=== PATIENT | female | born 1950 | race Two or more races ===

== ENCOUNTER 2018-07-09 21:27 | Inpatient (IN) | payer MEDICARE, OTHER ==
[~2018-07-09] VITALS: Ht 147.3 cm; Wt 101.2 kg
[2018-07-09 22:00] LABS: Basophils # (auto) 0.1 uL; Basophils % (auto) 1.2 % (0.0-2.0); Eosinophils # (auto) 0.3 uL; Eosinophils % (auto) 3.7 % (0.0-7.0); Hematocrit 42.5 % (36.0-46.0); Hemoglobin 14.5 g/dL (12.2-16.2); Lymphocytes # (auto) 2.1 uL; Lymphocytes % (auto) 26.1 % (10.0-50.0); Mean Corpuscular Hemoglobin 33.3 pg (28.0-32.0); Mean Corpuscular Hgb Conc. 34.2 g/dL (32.0-36.0); Mean Corpuscular Volume 97.5 fL (80.0-100.0); Monocytes # (auto) 0.7 uL; Monocytes % (auto) 8.1 % (0.0-12.0); Neutrophils % (auto) 60.9 % (37.0-80.0); Platelet Count (auto) 234 10^3/uL (140-450); Red Blood Cells 4.36 10^6/uL (4.0-5.20); Red Cell Distribution Width 13.2 % (11.8-14.3); White Blood Cell 8.2 10^3/uL (4.4-10.8)
[2018-07-09 22:17] LABS: INR 0.9 (0.9-1.15); Partial Thromboplastin Time 29.1 sec (23.78-33.04); Prothrombin Time 9.7 sec (9.27-12.13)
[2018-07-09 22:22] LABS: Alanine Aminotransferase 22 U/L (13-56); Anion Gap 7 (5-15); Aspartate Aminotransferase 18 U/L (15-37); Blood Urea Nitrogen 15 mg/dL (7-18); Calcium 8.5 mg/dL (8.5-10.1); Carbon Dioxide 28 mmol/L (21-32); Chloride 106 mmol/L (98-107); GFR African American 99 mL/min; GFR Non-African American 82 mL/min; Glucose 88 mg/dL (74-106); Magnesium 2.2 mg/dL (1.6-2.6); Potassium 4.2 mmol/L (3.5-5.1); Sodium 141 mmol/L (136-145)
[2018-07-09 22:27] LABS: Alkaline Phosphatase 98 U/L (45-117); Bilirubin, Total 0.4 mg/dL (0.2-1.0); Total Protein 8.2 g/dL (6.4-8.2)
[2018-07-10] MEDS ORDERED: NITROGLYCERIN 0.4 MG SL TAB SL ONE (03:00)
[2018-07-10] MEDS ORDERED: ASPirin-EC 325mg tab PO ONE (03:00)
[2018-07-10] MEDS ORDERED: MORPHINE SULFATE 4 MG/ML SYR/VIAL IV ONE (03:00)
[2018-07-10] MEDS ORDERED: IOHEXOL 350 MG/ML 100ML IJ ONE (04:05)
[2018-07-10] MEDS ORDERED: NITROGLYCERIN 0.4 MG SL TAB SL PRN (05:15)
[2018-07-10] MEDS ORDERED: MORPHINE SULF INJ 2 MG/ML SYRINGE 1ML IV PRN ×2 (05:15→13:15)
[2018-07-10] MEDS ORDERED: FUROSEMIDE 20 MG/2 ML VIAL IV ONE (06:00)
[2018-07-10 06:35] LABS: Basophils # (auto) 0 uL; Basophils % (auto) 0.7 % (0.0-2.0); Eosinophils # (auto) 0.3 uL; Eosinophils % (auto) 4.2 % (0.0-7.0); Hematocrit 39.4 % (36.0-46.0); Hemoglobin 13.6 g/dL (12.2-16.2); Lymphocytes # (auto) 1.6 uL; Lymphocytes % (auto) 23.3 % (10.0-50.0); Mean Corpuscular Hemoglobin 33.3 pg (28.0-32.0); Mean Corpuscular Hgb Conc. 34.6 g/dL (32.0-36.0); Mean Corpuscular Volume 96.4 fL (80.0-100.0); Monocytes # (auto) 0.7 uL; Monocytes % (auto) 9.8 % (0.0-12.0); Neutrophils # (auto) 4.2 uL; Nucleated Red Blood Cells % 0.1 %; Platelet Count (auto) 202 10^3/uL (140-450); Red Blood Cells 4.08 10^6/uL (4.0-5.20); Red Cell Distribution Width 13.3 % (11.8-14.3); White Blood Cell 6.8 10^3/uL (4.4-10.8)
[2018-07-10 06:49] LABS: BUN/Creatinine Ratio 16.7; Calcium 8.2 mg/dL (8.5-10.1); Potassium 3.8 mmol/L (3.5-5.1)
[2018-07-10 08:36] VITALS: BP 126/86
[2018-07-10 09:21] LABS: Cholesterol 141 mg/dL (< 200); HDL Cholesterol 51 mg/dL (40-59); LDL Cholesterol 88 mg/dL (< 100); Triglycerides 123 mg/dL (< 150)
[2018-07-10] MEDS ORDERED: LISINOPRIL 20 MG TAB PO SCH (10:00)
[2018-07-10 13:00] VITALS: BP 140/78
[2018-07-10 17:00] VITALS: BP 134/96
[2018-07-10 18:17] VITALS: BP 150/77
[2018-07-11] MEDS ORDERED: FUROSEMIDE 40 MG/4 ML VIAL IV SCH (10:00)
[2018-07-11] MEDS ORDERED: POTASSIUM CHL 20 Meq TABLET PO SCH (10:00)
[2018-07-11] MEDS ORDERED: ASPirin 81 mg TAB PO SCH (10:00)
== END 2018-07-10 19:00 | disposition home or self-care (01) | DRG 291 ==
LOC: ER 21:27 → TELE 21:28 → TELE-WESTW 07-10 08:47
PROVIDERS: ADMIT Nurse Practitioner Family; ATTEND Family Medicine
DX: I13.0 Hypertensive heart and chronic kidney disease with heart failure and stage 1 through stage 4 chronic kidney disease, or unspecified chronic kidney disease (principal); I50.31 Acute diastolic (congestive) heart failure; Z68.42 Body mass index [BMI] 45.0-49.9, adult; N18.2 Chronic kidney disease, stage 2 (mild); E66.01 Morbid (severe) obesity due to excess calories; G47.33 Obstructive sleep apnea (adult) (pediatric); I50.82 Biventricular heart failure; I70.0 Atherosclerosis of aorta; J45.909 Unspecified asthma, uncomplicated; K21.9 Gastro-esophageal reflux disease without esophagitis; K57.90 Diverticulosis of intestine, part unspecified, without perforation or abscess without bleeding; Z86.73 Personal history of transient ischemic attack (TIA), and cerebral infarction without residual deficits; Z88.5 Allergy status to narcotic agent; Z88.2 Allergy status to sulfonamides
CPT/HCPCS: 36415; 70450; 71045; 71260; 74177; 80048; 80053; 80061; 83735; 83880; 84443; 84484; 85025; 85610; 85730; 93005; 93306; 93886; 94761; 96374

== ENCOUNTER 2018-07-16 16:05 | Inpatient (IN) | payer OTHER ==
[~2018-07-16] VITALS: Ht 147.3 cm; Wt 100.7 kg
[2018-07-16 17:04] LABS: Basophils # (auto) 0.1 uL; Basophils % (auto) 0.9 % (0.0-2.0); Eosinophils # (auto) 0.1 uL; Eosinophils % (auto) 1.3 % (0.0-7.0); Hematocrit 43.3 % (36.0-46.0); Hemoglobin 14.8 g/dL (12.2-16.2); Lymphocytes # (auto) 1.8 uL; Lymphocytes % (auto) 23.9 % (10.0-50.0); Mean Corpuscular Hemoglobin 33.6 pg (28.0-32.0); Mean Corpuscular Hgb Conc. 34.3 g/dL (32.0-36.0); Mean Corpuscular Volume 97.9 fL (80.0-100.0); Monocytes # (auto) 0.7 uL; Monocytes % (auto) 9.6 % (0.0-12.0); Neutrophils # (auto) 4.8 uL; Neutrophils % (auto) 64.3 % (37.0-80.0); Nucleated Red Blood Cells % 0.2 %; Platelet Count (auto) 237 10^3/uL (140-450); Red Blood Cells 4.42 10^6/uL (4.0-5.20); Red Cell Distribution Width 13.1 % (11.8-14.3); White Blood Cell 7.5 10^3/uL (4.4-10.8)
[2018-07-16 17:21] LABS: Alanine Aminotransferase 37 U/L (13-56); Albumin 3.2 g/dL (3.4-5.0); Alkaline Phosphatase 101 U/L (45-117); Anion Gap 9 (5-15); Aspartate Aminotransferase 27 U/L (15-37); BUN/Creatinine Ratio 16.3; Bilirubin, Total 0.5 mg/dL (0.2-1.0); Blood Urea Nitrogen 17 mg/dL (7-18); Calcium 8.4 mg/dL (8.5-10.1); Carbon Dioxide 26 mmol/L (21-32); Chloride 105 mmol/L (98-107); GFR African American 68 mL/min; GFR Non-African American 56 mL/min; Glucose 90 mg/dL (74-106); Sodium 140 mmol/L (136-145); Total Protein 8.3 g/dL (6.4-8.2)
[2018-07-16 18:30] LABS: Urine Bacteria FEW /hpf (None Seen); Urine Blood Negative /uL (Negative); Urine Mucus FEW (None Seen); Urine Specific Gravity 1.023 (1.001-1.035); Urine WBC 3 /hpf (0 - 5)
[2018-07-16] MEDS ORDERED: ASPirin-EC 81 mg tab PO ONE (21:00)
[2018-07-16] MEDS ORDERED: KETOROLAC TROMETH 60MG/2ML VIAL IM ONE (21:00)
[2018-07-16 21:47] LABS: INR 0.92 (0.9-1.15); Partial Thromboplastin Time 29.5 sec (23.78-33.04); Prothrombin Time 9.9 sec (9.27-12.13)
[2018-07-16] MEDS ORDERED: IOHEXOL 350 MG/ML 100ML IJ ONE (22:05)
[2018-07-16] MEDS ORDERED: ASPirin 81 mg TAB PO ONE (22:45)
[2018-07-16] MEDS ORDERED: KETOROLAC TROMETH 30 MG/ML 1ML VIAL IV ONE (22:45)
[2018-07-17] MEDS ORDERED: ACETAMINOPHEN 500 MG TAB PO PRN (01:15)
[2018-07-17] MEDS ORDERED: MORPHINE SULF INJ 2 MG/ML SYRINGE 1ML IV PRN (01:15)
[2018-07-17] MEDS: HYDROcodone-ACET 5/325MG TAB PO PRN ×2 (05:24→09:36)
[2018-07-17] MEDS ORDERED: LISINOPRIL 20 MG TAB PO SCH (10:00)
[2018-07-17 13:43] VITALS: BP 134/75
== END 2018-07-17 14:34 | disposition home or self-care (01) | DRG 206 ==
LOC: ER 16:05 → TELE 16:06
PROVIDERS: ADMIT Nurse Practitioner Family; ATTEND Internal Medicine
PROC: 5A09357 Assistance with Respiratory Ventilation, Less than 24 Consecutive Hours, Continuous Positive Airway Pressure (ICD-10-PCS; principal; 2018-07-17)
DX: M94.0 Chondrocostal junction syndrome [Tietze] (principal); E44.1 Mild protein-calorie malnutrition; G45.9 Transient cerebral ischemic attack, unspecified; Z68.42 Body mass index [BMI] 45.0-49.9, adult; I11.0 Hypertensive heart disease with heart failure; J45.909 Unspecified asthma, uncomplicated; F41.9 Anxiety disorder, unspecified; I50.9 Heart failure, unspecified; I70.0 Atherosclerosis of aorta; K57.30 Diverticulosis of large intestine without perforation or abscess without bleeding; M81.0 Age-related osteoporosis without current pathological fracture; Z85.42 Personal history of malignant neoplasm of other parts of uterus; Z86.73 Personal history of transient ischemic attack (TIA), and cerebral infarction without residual deficits; Z90.710 Acquired absence of both cervix and uterus; Z88.2 Allergy status to sulfonamides; Z88.5 Allergy status to narcotic agent; Z90.49 Acquired absence of other specified parts of digestive tract
CPT/HCPCS: 36415; 71045; 71275; 80053; 81001; 83880; 84443; 84484; 85025; 85379; 85610; 85730; 93005; 94660; 94761; 96374; J1885

== ENCOUNTER 2018-08-11 00:10 | Emergency (ER) | payer OTHER ==
[~2018-08-11] VITALS: Ht 147.3 cm; Wt 93.4 kg
[2018-08-11 04:18] LABS: Basophils # (auto) 0.1 uL; Basophils % (auto) 0.7 % (0.0-2.0); Eosinophils # (auto) 0.1 uL; Eosinophils % (auto) 1.2 % (0.0-7.0); Hematocrit 36.6 % (36.0-46.0); Hemoglobin 12.4 g/dL (12.2-16.2); Lymphocytes # (auto) 1.2 uL; Lymphocytes % (auto) 14.5 % (10.0-50.0); Mean Corpuscular Hemoglobin 33.1 pg (28.0-32.0); Mean Corpuscular Hgb Conc. 33.8 g/dL (32.0-36.0); Mean Corpuscular Volume 97.9 fL (80.0-100.0); Monocytes # (auto) 0.7 uL; Monocytes % (auto) 8.3 % (0.0-12.0); Neutrophils # (auto) 6.2 uL; Neutrophils % (auto) 75.3 % (37.0-80.0); Nucleated Red Blood Cells % 0.1 %; Platelet Count (auto) 173 10^3/uL (140-450); Red Blood Cells 3.74 10^6/uL (4.0-5.20); Red Cell Distribution Width 13.2 % (11.8-14.3); White Blood Cell 8.2 10^3/uL (4.4-10.8)
[2018-08-11 04:35] LABS: Amylase 56 U/L (25-115); Lipase 246 U/L (73-393)
[2018-08-11 04:37] LABS: Alanine Aminotransferase 24 U/L (13-56); Albumin 2.7 g/dL (3.4-5.0); Alkaline Phosphatase 76 U/L (45-117); Anion Gap 7 (5-15); Aspartate Aminotransferase 17 U/L (15-37); BUN/Creatinine Ratio 17.3; Bilirubin, Total 0.4 mg/dL (0.2-1.0); Blood Urea Nitrogen 23 mg/dL (7-18); Calcium 7.9 mg/dL (8.5-10.1); Carbon Dioxide 25 mmol/L (21-32); Chloride 111 mmol/L (98-107); GFR African American 51 mL/min; GFR Non-African American 42 mL/min; Glucose 111 mg/dL (74-106); Potassium 3.7 mmol/L (3.5-5.1); Sodium 143 mmol/L (136-145); Total Protein 6.7 g/dL (6.4-8.2)
[2018-08-11 06:10] VITALS: BP 109/63
== END 2018-08-11 07:13 | disposition home or self-care (01) ==
LOC: EDBD 00:10 → EDSEX 00:10 → ER 00:10
DX: K29.70 Gastritis, unspecified, without bleeding (principal); R55 Syncope and collapse; E86.0 Dehydration; J45.909 Unspecified asthma, uncomplicated; I11.0 Hypertensive heart disease with heart failure; I50.9 Heart failure, unspecified; E78.5 Hyperlipidemia, unspecified; Z86.73 Personal history of transient ischemic attack (TIA), and cerebral infarction without residual deficits; Z90.710 Acquired absence of both cervix and uterus; Z88.2 Allergy status to sulfonamides; Z88.5 Allergy status to narcotic agent
CPT/HCPCS: 36415; 70450; 74176; 80053; 82150; 83690; 84484; 85025; 93005

== ENCOUNTER 2019-10-29 09:54 | Emergency (ER) | payer OTHER ==
[~2019-10-29] VITALS: Ht 142.2 cm; Wt 90.7 kg
[2019-10-29 10:23] LABS: Basophils # (auto) 0 uL; Basophils % (auto) 0.7 % (0.0-2.0); Eosinophils # (auto) 0.1 uL; Eosinophils % (auto) 2.2 % (0.0-7.0); Hematocrit 42.5 % (36.0-46.0); Hemoglobin 14.7 g/dL (12.2-16.2); Lymphocytes % (auto) 24.2 % (10.0-50.0); Mean Corpuscular Hemoglobin 33.5 pg (28.0-32.0); Mean Corpuscular Hgb Conc. 34.5 g/dL (32.0-36.0); Monocytes # (auto) 0.6 uL; Monocytes % (auto) 13.8 % (0.0-12.0); Neutrophils # (auto) 2.4 uL; Neutrophils % (auto) 59.1 % (37.0-80.0); Nucleated Red Blood Cells % 0.2 %; Platelet Count (auto) 185 10^3/uL (140-450); Red Blood Cells 4.38 10^6/uL (4.0-5.20); Red Cell Distribution Width 12.7 % (11.8-14.3)
[2019-10-29] MEDS ORDERED: SODIUM CHLORIDE 0.9% 1,000 ML IV ONE (10:28)
[2019-10-29 10:32] LABS: Urine Bacteria FEW /hpf (None Seen); Urine Blood 1+ /uL (Negative); Urine Mucus FEW (None Seen); Urine Specific Gravity 1.023 (1.001-1.035); Urine WBC 11 /hpf (0 - 5)
[2019-10-29 10:40] LABS: Albumin 2.8 g/dL (3.4-5.0); BUN/Creatinine Ratio 10.3; Calcium 8.1 mg/dL (8.5-10.1); Potassium 3.5 mmol/L (3.5-5.1)
[2019-10-29 10:43] LABS: Bilirubin, Total 0.4 mg/dL (0.2-1.0); Total Protein 7.8 g/dL (6.4-8.2)
[2019-10-29 11:22] LABS: INR 0.97 (0.9-1.15); Partial Thromboplastin Time 28.2 sec (23.64-32.05)
[2019-10-29 12:02] VITALS: BP 113/71
== END 2019-10-29 12:11 | disposition home or self-care (01) ==
LOC: ER 10:02
DX: S76.011A Strain of muscle, fascia and tendon of right hip, initial encounter (principal); S46.911A Strain of unspecified muscle, fascia and tendon at shoulder and upper arm level, right arm, initial encounter; N39.0 Urinary tract infection, site not specified; E44.0 Moderate protein-calorie malnutrition; R55 Syncope and collapse; I11.0 Hypertensive heart disease with heart failure; I50.9 Heart failure, unspecified; E78.5 Hyperlipidemia, unspecified; J45.909 Unspecified asthma, uncomplicated; Z90.49 Acquired absence of other specified parts of digestive tract; Z90.710 Acquired absence of both cervix and uterus; Z86.73 Personal history of transient ischemic attack (TIA), and cerebral infarction without residual deficits; Z88.2 Allergy status to sulfonamides; Z88.6 Allergy status to analgesic agent; Z68.41 Body mass index [BMI] 40.0-44.9, adult; W18.39XA Other fall on same level, initial encounter; Y93.89 Activity, other specified; Y92.89 Other specified places as the place of occurrence of the external cause; Y99.8 Other external cause status
CPT/HCPCS: 36415; 70450; 71046; 72040; 72192; 73030; 80053; 81001; 84484; 85025; 85610; 85730; 93005; 99284; J7030

== ENCOUNTER 2020-10-13 13:22 | Emergency (ER) | payer OTHER ==
[~2020-10-13] VITALS: Ht 162.6 cm; Wt 95.3 kg
[2020-10-13 13:48] VITALS: BP 134/65
[2020-10-13 16:11] LABS: Basophils # (auto) 0.1 10 ^3/uL (0-0.2); Basophils % (auto) 1.3 % (0.0-2.0); Eosinophils # (auto) 0.1 10 ^3/uL (0-0.8); Eosinophils % (auto) 2.2 % (0.0-7.0); Hematocrit 39.8 % (36.0-46.0); Hemoglobin 13.4 g/dL (12.2-16.2); Lymphocytes # (auto) 1.6 10 ^3/uL (0.4-5.4); Lymphocytes % (auto) 25.2 % (10.0-50.0); Mean Corpuscular Hemoglobin 32.9 pg (28.0-32.0); Mean Corpuscular Hgb Conc. 33.8 g/dL (32.0-36.0); Mean Corpuscular Volume 97.3 fL (80.0-100.0); Monocytes # (auto) 0.7 10 ^3/uL (0-1.3); Monocytes % (auto) 10.8 % (0.0-12.0); Neutrophils # (auto) 3.8 10 ^3/uL (1.6-8.6); Neutrophils % (auto) 60.5 % (37.0-80.0); Nucleated Red Blood Cells % 0.1 %; Platelet Count (auto) 223 10^3/uL (140-450); Red Blood Cells 4.09 10^6/uL (4.0-5.20); Red Cell Distribution Width 13.1 % (11.8-14.3); White Blood Cell 6.3 10^3/uL (4.4-10.8)
[2020-10-13 16:28] LABS: Alanine Aminotransferase 21 U/L (13-56); Albumin 2.9 g/dL (3.4-5.0); Anion Gap 4 (5-15); Blood Urea Nitrogen 13 mg/dL (7-18); Calcium 8.3 mg/dL (8.5-10.1); Carbon Dioxide 28 mmol/L (21-32); Chloride 107 mmol/L (98-107); Glucose 101 mg/dL (74-106); Sodium 139 mmol/L (136-145)
[2020-10-13 16:33] LABS: Alkaline Phosphatase 87 U/L (45-117); Aspartate Aminotransferase 17 U/L (15-37); BUN/Creatinine Ratio 12.9; Bilirubin, Total 0.4 mg/dL (0.2-1.0); GFR African American 70 mL/min; GFR Non-African American 58 mL/min; Total Protein 7.9 g/dL (6.4-8.2)
== END 2020-10-13 20:40 | disposition home or self-care (01) ==
LOC: ER 13:22
DX: L03.116 Cellulitis of left lower limb (principal); E46 Unspecified protein-calorie malnutrition; I11.0 Hypertensive heart disease with heart failure; I50.9 Heart failure, unspecified; Z90.49 Acquired absence of other specified parts of digestive tract; Z90.710 Acquired absence of both cervix and uterus; Z86.73 Personal history of transient ischemic attack (TIA), and cerebral infarction without residual deficits; Z88.2 Allergy status to sulfonamides; Z88.6 Allergy status to analgesic agent
CPT/HCPCS: 36415; 71045; 80053; 83880; 84484; 85025; 93970

== ENCOUNTER 2022-12-11 12:11 | Inpatient (IN) | payer OTHER ==
[~2022-12-11] VITALS: Ht 144.8 cm; Wt 86.3 kg
[2022-12-11 12:55] LABS: Basophils # (auto) 0 10 ^3/uL (0-0.2); Basophils % (auto) 0.8 % (0.0-2.0); Eosinophils # (auto) 0 10 ^3/uL (0-0.8); Eosinophils % (auto) 0.8 % (0.0-7.0); Hematocrit 41.5 % (36.0-46.0); Hemoglobin 14.3 g/dL (12.2-16.2); Lymphocytes # (auto) 1.2 10 ^3/uL (0.4-5.4); Lymphocytes % (auto) 20.3 % (10.0-50.0); Mean Corpuscular Hgb Conc. 34.5 g/dL (32.0-36.0); Mean Corpuscular Volume 98.6 fL (80.0-100.0); Monocytes # (auto) 0.5 10 ^3/uL (0-1.3); Monocytes % (auto) 8.2 % (0.0-12.0); Neutrophils # (auto) 4.1 10 ^3/uL (1.6-8.6); Neutrophils % (auto) 69.9 % (37.0-80.0); Nucleated Red Blood Cells % 0.2 %; Red Blood Cells 4.21 10^6/uL (4.0-5.20); White Blood Cell 5.8 10^3/uL (4.4-10.8)
[2022-12-11 13:11] LABS: Albumin 2.9 g/dL (3.4-5.0); Calcium 8.9 mg/dL (8.5-10.1)
[2022-12-11 13:17] LABS: BUN/Creatinine Ratio 15.8; Bilirubin, Total 0.7 mg/dL (0.2-1.0); Total Protein 7.6 g/dL (6.4-8.2)
[2022-12-11 13:26] LABS: Urine Bacteria FEW /hpf (None Seen); Urine Blood Negative /uL (Negative); Urine Mucus FEW (None Seen); Urine WBC 59 /hpf (0 - 5)
[2022-12-11] MEDS ORDERED: IOHEXOL 350 MG/ML 100ML IJ ONE (13:48)
[2022-12-12] MEDS ORDERED: MORPHINE SULFATE INJ 2 MG/ml SYRG IV PRN (02:45)
[2022-12-12] MEDS ORDERED: ALBUTEROL SULF 2.5 MG/0.5ML(0.5%) NEB SOLN NEB PRN (02:45)
[2022-12-12] MEDS ORDERED: NITROGLYCERIN 0.4 MG SL TAB SL PRN (02:45)
[2022-12-12] MEDS ORDERED: TEMAZEPAM 15 MG CAP PO PRN (02:45)
[2022-12-12] MEDS ORDERED: ONDANSETRON HCL 4 MG/2 ML VIAL IV PRN (02:45)
[2022-12-12] MEDS: FUROSEMIDE 20 MG TAB PO SCH ×2 (07:10→20:07)
[2022-12-12] MEDS: ASPirin 81 mg TAB PO SCH (09:30)
[2022-12-12] MEDS: LISINOPRIL 20 MG TAB PO SCH (09:30)
[2022-12-12] MEDS: ENOXAPARIN SOD 40 MG/0.4 ML SYRINGE SC SCH (09:30)
[2022-12-12 14:09] VITALS: BP 154/70
[2022-12-12 14:12] VITALS: BP 127/77
[2022-12-12] MEDS ORDERED: OMEP-260 PO (14:51)
[2022-12-12] MEDS ORDERED: OXYB10TA14 (14:51)
[2022-12-12] MEDS ORDERED: CHOL50007 PO (14:51)
[2022-12-12] MEDS ORDERED: ALBU108A5 PO (14:51)
[2022-12-12] MEDS ORDERED: ALEN70TA74 PO (14:51)
[2022-12-12] MEDS ORDERED: ATOR20TA50 PO (14:51)
[2022-12-12] MEDS ORDERED: FAMO20TA10 PO (14:51)
[2022-12-12] MEDS ORDERED: LISI20TA28 PO (14:51)
[2022-12-12] MEDS ORDERED: POTA8TAB2 PO (14:51)
[2022-12-12] MEDS ORDERED: FUR20T PO (17:26)
[2022-12-12] MEDS ORDERED: ACET-6 PO (17:26)
[2022-12-12] MEDS ORDERED: CEPH500C PO (17:26)
[2022-12-12] MEDS: ATORVASTATIN 20 MG TAB PO SCH (21:10)
[2022-12-12] MEDS ORDERED: ALBUTEROL MEDNEB 2.5 mg/3ml NEB NEB PRN (21:45)
[2022-12-12] MEDS: FAMOTIDINE 20 MG TAB PO SCH (21:51)
[2022-12-13 05:00] VITALS: BP 122/44
[2022-12-13 05:12] LABS: Basophils # (auto) 0 10 ^3/uL (0-0.2); Basophils % (auto) 0.6 % (0.0-2.0); Eosinophils # (auto) 0.2 10 ^3/uL (0-0.8); Eosinophils % (auto) 2.7 % (0.0-7.0); Lymphocytes # (auto) 2.1 10 ^3/uL (0.4-5.4); Lymphocytes % (auto) 30.7 % (10.0-50.0); Mean Corpuscular Hgb Conc. 33.4 g/dL (32.0-36.0); Mean Corpuscular Volume 98.8 fL (80.0-100.0); Monocytes # (auto) 0.8 10 ^3/uL (0-1.3); Monocytes % (auto) 11.4 % (0.0-12.0); Neutrophils # (auto) 3.7 10 ^3/uL (1.6-8.6); Neutrophils % (auto) 54.6 % (37.0-80.0); Red Blood Cells 3.95 10^6/uL (4.0-5.20); White Blood Cell 6.8 10^3/uL (4.4-10.8)
[2022-12-13 05:30] LABS: BUN/Creatinine Ratio 12.3; Calcium 8.3 mg/dL (8.5-10.1); Potassium 3.6 mmol/L (3.5-5.1)
[2022-12-13] MEDS: FUROSEMIDE 20 MG TAB PO SCH ×2 (06:43→18:28)
[2022-12-13] MEDS: ASPirin 81 mg TAB PO SCH (08:49)
[2022-12-13] MEDS: ENOXAPARIN SOD 40 MG/0.4 ML SYRINGE SC SCH (08:50)
[2022-12-13] MEDS: LISINOPRIL 20 MG TAB PO SCH (08:50)
[2022-12-13] MEDS: OMEPRAZOLE 20MG/10ML ORAL SUSP PO SCH (09:00)
[2022-12-13 13:09] VITALS: BP 105/41
[2022-12-13 17:17] VITALS: BP 113/59
[2022-12-13] MEDS: FAMOTIDINE 20 MG TAB PO SCH (21:42)
[2022-12-13] MEDS: ATORVASTATIN 20 MG TAB PO SCH (21:43)
[2022-12-13 22:00] VITALS: BP 111/63
[2022-12-14 04:48] VITALS: BP_SYST 115; BP_SYST 129; BP_SYST 96; BP_DIAS 52; BP_DIAS 69; BP_DIAS 78
[2022-12-14] MEDS: FUROSEMIDE 20 MG TAB PO SCH ×2 (06:38→17:49)
[2022-12-14] MEDS ORDERED: ADENOSINE 72 MG in GIVE UN-DILUTED 0 ML IV STA (07:41)
[2022-12-14 09:00] VITALS: BP_SYST 109; BP_SYST 114; BP_SYST 80; BP_DIAS 64; BP_DIAS 70
[2022-12-14] MEDS: LISINOPRIL 20 MG TAB PO SCH (10:00)
[2022-12-14] MEDS: OMEPRAZOLE 20MG/10ML ORAL SUSP PO SCH (10:31)
[2022-12-14] MEDS: ENOXAPARIN SOD 40 MG/0.4 ML SYRINGE SC SCH (10:47)
[2022-12-14] MEDS: ACETAMINOPHEN 325 MG TAB PO PRN (10:48)
[2022-12-14] MEDS: ASPirin 81 mg TAB PO SCH (10:48)
[2022-12-14 13:00] VITALS: BP_SYST 103; BP_SYST 104; BP_SYST 99; BP_DIAS 58; BP_DIAS 60; BP_DIAS 65
[2022-12-14 17:00] VITALS: BP_SYST 112; BP_SYST 124; BP_SYST 125; BP_DIAS 58; BP_DIAS 77; BP_DIAS 78
[2022-12-14] MEDS: FAMOTIDINE 20 MG TAB PO SCH (21:45)
[2022-12-14] MEDS: ATORVASTATIN 20 MG TAB PO SCH (21:45)
[2022-12-14 22:00] VITALS: BP 96/52
[2022-12-15 05:00] VITALS: BP_SYST 130; BP_SYST 92; BP_SYST 94; BP_DIAS 45; BP_DIAS 61; BP_DIAS 70
[2022-12-15] MEDS: FUROSEMIDE 20 MG TAB PO SCH ×2 (06:30→18:44)
[2022-12-15 08:25] VITALS: BP 125/66
[2022-12-15] MEDS: ASPirin 81 mg TAB PO SCH (08:39)
[2022-12-15] MEDS: OMEPRAZOLE 20MG/10ML ORAL SUSP PO SCH (08:40)
[2022-12-15] MEDS: ENOXAPARIN SOD 40 MG/0.4 ML SYRINGE SC SCH (08:40)
[2022-12-15 12:20] VITALS: BP 105/52
[2022-12-15] MEDS: LISINOPRIL 20 MG TAB PO SCH (12:44)
[2022-12-15] MEDS ORDERED: ASPI-325 PO (15:54)
[2022-12-15 16:15] VITALS: BP 104/52
[2022-12-15] MEDS ORDERED: HALOPERIDOL LACTATE 5 MG/ML INJ VIAL IM ONE (18:45)
[2022-12-15] MEDS: ATORVASTATIN 20 MG TAB PO SCH ×2 (21:41→21:42)
[2022-12-15] MEDS: FAMOTIDINE 20 MG TAB PO SCH (21:41)
[2022-12-15 22:00] VITALS: BP 106/52
[2022-12-15] MEDS ORDERED: ATORVASTATIN 20 MG TAB PO SCH (22:00)
[2022-12-15 22:23] LABS: Cholesterol 114 mg/dL (< 200)
[2022-12-15 22:26] LABS: HDL Cholesterol 58 mg/dL (40-59); LDL Cholesterol 50 mg/dL (< 100); Triglycerides 99 mg/dL (< 150)
[2022-12-16 05:00] VITALS: BP 112/71
[2022-12-16] MEDS: FUROSEMIDE 20 MG TAB PO SCH (06:06)
[2022-12-16] MEDS: ENOXAPARIN SOD 40 MG/0.4 ML SYRINGE SC SCH (08:59)
[2022-12-16] MEDS: OMEPRAZOLE 20MG/10ML ORAL SUSP PO SCH (08:59)
[2022-12-16 09:00] VITALS: BP 103/63
[2022-12-16] MEDS: LISINOPRIL 20 MG TAB PO SCH (09:08)
[2022-12-16] MEDS: ACETAMINOPHEN 325 MG TAB PO PRN (09:30)
[2022-12-16] MEDS ORDERED: ASPirin 81 mg TAB PO SCH (10:00)
[2022-12-16] MEDS ORDERED: MECL1TAB42 PO (12:12)
[2022-12-16] MEDS ORDERED: LORA0.5T20 PO (12:12)
[2022-12-16 12:55] VITALS: BP 94/53
== END 2022-12-16 14:00 | disposition home or self-care (01) | DRG 313 ==
LOC: ER 12:11 → TELE 12-12 02:41 → TELE-E-ADS 12-12 13:40 → TELE-EAST 12-12 21:24
PROVIDERS: ADMIT Nurse Practitioner; ATTEND Internal Medicine
PROC: 5A09357 Assistance with Respiratory Ventilation, Less than 24 Consecutive Hours, Continuous Positive Airway Pressure (ICD-10-PCS; principal; 2022-12-12)
DX: R07.89 Other chest pain (principal); N39.0 Urinary tract infection, site not specified; I50.32 Chronic diastolic (congestive) heart failure; Z68.41 Body mass index [BMI] 40.0-44.9, adult; Z20.822 Contact with and (suspected) exposure to COVID-19; I11.0 Hypertensive heart disease with heart failure; E78.5 Hyperlipidemia, unspecified; R63.0 Anorexia; E66.01 Morbid (severe) obesity due to excess calories; G47.30 Sleep apnea, unspecified; K21.9 Gastro-esophageal reflux disease without esophagitis; Z79.899 Other long term (current) drug therapy; Z90.49 Acquired absence of other specified parts of digestive tract; Z88.5 Allergy status to narcotic agent; Z88.2 Allergy status to sulfonamides; Z86.73 Personal history of transient ischemic attack (TIA), and cerebral infarction without residual deficits
CPT/HCPCS: 36415; 70450; 70551; 71045; 78452; 80048; 80053; 80061; 81001; 83880; 84484; 85025; 85379; 87426; 93005; 93017; 93306; 93886; 94660; 96372; G0378; J0153; J2405